=== PATIENT | male | born 1980 | race Caucasian/White ===

== ENCOUNTER 2017-04-30 15:50 | Emergency (ER) | payer OTHER ==
[~2017-04-30] VITALS: Ht 193 cm; Wt 104.5 kg
[2017-04-30] MEDS ORDERED: NEOM1SUS15 OP (16:08)
[2017-04-30] MEDS ORDERED: WELLTAB40 PO (16:08)
[2017-04-30] MEDS ORDERED: CONC54TA4 (16:08)
[2017-04-30] MEDS ORDERED: CHLO25TA GT (16:27)
[2017-04-30] MEDS ORDERED: BACT800T5 PO (16:27)
[2017-04-30] MEDS ORDERED: FLUORESCEIN OPHTH 1 MG STRIP OS ONE (17:15)
[2017-04-30] MEDS ORDERED: VALT1TAB PO (18:19)
[2017-04-30] MEDS ORDERED: NEUR100C PO (18:19)
[2017-04-30] MEDS ORDERED: NORCOTAB PO (18:19)
[2017-04-30 18:35] VITALS: BP 157/87
== END 2017-04-30 18:45 | disposition home or self-care (01) ==
LOC: M ED 15:50 → EDBD 15:50 → M ED 18:45
DX: B02.9 Zoster without complications (principal); I10 Essential (primary) hypertension; Z79.899 Other long term (current) drug therapy